=== PATIENT | female | born 1965 | race Caucasian/White ===

== ENCOUNTER 2016-07-06 02:06 | Inpatient (IN) | payer OTHER ==
[~2016-07-06] VITALS: Ht 165.1 cm; Wt 77.7 kg
[2016-07-06] VITALS (10 sets, daily range): BP systolic 143–178; BP diastolic 68–88
--- NOTE | ~2016-07-06 | ST ---
[place], [place] EXERCISE STRESS TEST REPORT [id number] UNIT #: [id number] ROOM: 411 DOCTOR: DALJIT WEN MD BIRTHDATE: [birth year] DOS: 07/07/2016 EXERCISE MYOCARDIAL PERFUSION STUDY INDICATIONS: Precordial chest pain. PROCEDURE: The patient walked on a full Maurizio protocol stress test for 6 minutes 45 seconds and achieved a maximum heart rate of 147, which represented 88% of her maximum predicted heart rate at a workload of 10 mets. Her resting blood pressure of 138/78 giulia to 174/80. She stopped for fatigue and did not have any chest pain. No diagnostic electrocardiographic changes were seen. The Torrez treadmill score was 6.8, which is a low-risk finding. One minute prior to completion of exercise protocol, the patient was given radionuclide intravenously. IMPRESSION: 1. Adequate exercise capacity without chest pain or diagnostic electrocardiographic changes. 2. Isotope injected. Please see the separate imaging report for details of the patient's stress test results. DALJIT WEN MD CM:STRESS:EXERCISE STRESS TEST REPORT [id number] 1943 DALJIT WEN MD
--- NOTE | ~2016-07-06 | PR ---
[place], [place] PROGRESS NOTE NAME: MADDIE VILLAR UNIT #: [id number] ROOM: 411 DOCTOR: DALJIT WEN MD BIRTHDATE: [birth year] DOS: 07/07/2016 CARDIOLOGY PROGRESS NOTE SUBJECTIVE: The patient was seen in the Cardiology Department today 07/07/2016 prior to her stress test. She is a 51-year-old woman, who presented to the hospital yesterday with atypical chest discomfort. Since yesterday, her pains have resolved. She has not shown any objective findings suggesting acute coronary ischemia or infarction. She is scheduled for stress test today to further evaluate her symptoms. PHYSICAL EXAMINATION: VITAL SIGNS: Her pulse is 67 and regular, blood pressure is 138/78. She weighs 77.7 kg and has a body mass index of 28.5. HEENT: Normocephalic, atraumatic. NECK: Supple. She has no jugular distention. Carotids are full without bruits. LUNGS: Respirations are unlabored. Her chest is clear to auscultation and percussion. HEART: Has a regular rhythm with an S4 gallop and no S3. ABDOMEN: Soft and normoactive. EXTREMITIES: Showed no edema. LABORATORY DATA: Her electrocardiogram today showed sinus rhythm and was a normal tracing. IMPRESSION: 1. Chest pain with radiation into her left arm, relieved by aspirin and possibly also by nitrates. Her symptoms seem fairly atypical, but given her risk factors, this could represent unstable angina. The patient did not show any evidence of an acute myocardial injury. 2. Long-term and ongoing cigarette abuse. 3. Elevated blood pressure this admission, not previously documented. 4. Hyperlipidemia. LDL today is 123, total cholesterol is 197, HDL is 38. PLAN: The patient will undergo an exercise myocardial perfusion study. Further recommendations will depend upon the results of the stress test. Once again, she was advised to quit smoking. I thank the hospitalist group for asking our advice regarding her care. [place], [place] PROGRESS NOTE NAME: MADDIE VILLAR UNIT #: [id number] ROOM: 411 DOCTOR: DALJIT WEN MD BIRTHDATE: [birth year] DALJIT WEN MD CM:PNTRANS [id number] 33 DALJIT WEN MD 07/07/161932 interface
--- NOTE | ~2016-07-06 | CON ---
[place], [place] REPORT OF CONSULTATION NAME: [id number] UNIT #: [id number] ROOM: 411 DOCTOR: DALJIT WEN MD BIRTHDATE: [birth year] DOS: 07/06/2016 CARDIOLOGY CONSULTATION REASON FOR CONSULTATION: Chest pain. HISTORY OF PRESENT ILLNESS: The patient is a 51-year-old woman who has no previous history of heart disease. She has not seen physicians in quite some time. She does have a history of tobacco abuse and obesity as well as probable hyperlipidemia. She states that for the last several days, she has had brief episodes of left anterior chest discomfort which come and go without provocation. Last evening, she had a much more prolonged episode of pain lasting at least 30-40 minutes. It was associated with dyspnea and was a burning sensation in her left anterior chest that radiated into her arm. There was no associated diaphoresis, palpitation, lightheadedness or syncope. She presented to the Emergency Room where her electrocardiogram was normal, but she did receive relief with sublingual nitroglycerin and aspirin. She was therefore admitted to the hospital for further assessment. Her risk factors include obesity and tobacco abuse. She is not known to have diabetes or hypertension. PAST MEDICAL HISTORY: Includes; 1. Nonalcoholic fatty liver disease. 2. Obesity. 3. Long-term and ongoing tobacco abuse of about 1.5 packs per day. 4. History of section, tubal ligation and tonsillectomy. FAMILY HISTORY: The patient's father had a bypass at age 88 and from a heart attack at age 89. Her mother in her 60s from lung cancer. There is no other family history of heart disease. REVIEW OF SYSTEMS: The patient denies diplopia, loss of vision, lightheadedness or syncope. She denies focal weakness. She denies nausea or vomiting. She denies fevers, chills or sweats. She denies any recent weight change. She denies orthopnea or PND. She denies any palpitations. She denies cough, fevers or chills. She denies any recent weight change. She denies any change in bowel or bladder habits and denies bleeding in her stools or urine. 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 She denies any hot or swollen joints. The remainder of the review of systems is negative except as noted above. SOCIAL HISTORY: The patient does smoke one and a half pack of cigarettes a day. She does not consume excessive amounts of alcohol or any illegal drugs. PHYSICAL EXAMINATION: GENERAL: The patient is an overweight white female who is awake, alert and oriented. VITAL SIGNS: Pulse is 70 and regular, blood pressure is 151/73. She is afebrile. She weighs 77.7 kg and has a body mass index of 28.5. [place], [place] REPORT OF CONSULTATION NAME: MADDIE VILLAR UNIT #: [id number] ROOM: 411 DOCTOR: DALJIT WEN MD BIRTHDATE: [birth year] HEENT: Normocephalic, atraumatic. Extraocular muscles are intact. Sclerae are clear. Pupils are equal, round and reactive to light. The oral mucosa is moist. Tongue is midline. NECK: Supple. She has no jugular distention. Carotids are full. I heard no bruits. She had no neck or supraclavicular masses and no thyromegaly. LUNGS: Respirations are unlabored. Her chest is clear to auscultation and percussion. She has no presacral edema or chest wall tenderness. HEART: Has a regular rhythm. She has a fourth heart sound, but no third heart sound or murmur. The PMI is not displaced. She has no precordial heave, lift or thrill. ABDOMEN: Soft and normally active without masses, organomegaly or bruits. EXTREMITIES: Showed no clubbing, cyanosis or edema. Peripheral pulses are easily palpated in the feet bilaterally. She does have ichthyosis of her arms, torso and legs. IMAGING: I reviewed her electrocardiogram, which showed sinus rhythm and was a normal tracing. IMPRESSION: 1. Chest pain with radiation into her left arm, relieved by aspirin and possibly nitrates. Given her risk factors, this certainly could represent unstable angina. Thus far, she does not show any signs of myocardial injury. 2. Long-term and ongoing cigarette abuse. 3. Possible hyperlipidemia. The patient does have prominent xanthelasma on her eyelids bilaterally. 4. Elevated blood pressure this admission. PLAN: The patient has already ruled out for myocardial infarction. A lipid panel is pending. Her thyroid profile is normal. If no problems develop overnight, I think that she should be further evaluated with an exercise myocardial perfusion study. I explained the study to the patient and she has agreed to proceed. I thank the hospitalist group for asking our advice regarding her care. DALJIT WEN MD CM:CONSTR:REPORT OF CONSULTATION 1742 07/07/16 0438 interface
[~2016-07-06 02:06] MED LIST: NO DAILY MEDS; ULTRAM50 MG PO; VICODIN ES 7501 TAB PO
[2016-07-06 02:45] LABS: BASO # 0.1 10*3/uL (0.0-0.1); BASO % 0.8 % (0.0-1.0); EOS # 0.2 10*3/uL (0.0-0.4); EOS % 2.7 % (1.0-4.0); HEMATOCRIT 43.6 % (37.0-47.0); HEMOGLOBIN 14.2 g/dl (12.0-16.0); LYMPH % 22.7 % (27.0-41.0); MEAN CELL VOLUME 92.2 fl (81.0-99.0); MEAN CORPUSCULAR HGB CONC 32.6 g/dl (33.0-37.0); MEAN PLATELET VOLUME 8.8 fl (9.6-12.3); MONO # 0.7 10*3/uL (0.1-1.0); MONO % 7.8 % (3.0-9.0); NEUT # 5.7 10*3/uL (2.3-7.9); NEUT % 65.9 % (47.0-73.0); PLATELET COUNT AUTOMATED 211 10*3/uL (130-400); RED BLOOD COUNT 4.73 10*6/uL (4.10-5.10); RED CELL DISTRI WIDTH 13.2 % (0-14.5); WHITE BLOOD COUNT 8.7 10*3/uL (4.8-10.8)
[2016-07-06] MEDS ORDERED: ALEVE220 M1 PO (02:49)
[2016-07-06 02:57] LABS: BUN 11 mg/dl (7-24); CARBON DIOXIDE 28 mmol/L (21-32); CHLORIDE 109 mmol/L (98-107); EST GLOM FILT AFRICAN AMERICAN > 60 ml/min; GLUCOSE 88 mg/dL (65-99); POTASSIUM 3.8 mmol/L (3.5-5.1); SODIUM 145 mmol/L (136-145)
[2016-07-06 06:38] LABS: CKMB 0.6 ng/ml (0.5-3.6)
[2016-07-06 06:44] LABS: HEMOGLOBIN A1c 5.4 % (4.8-5.6)
[2016-07-06 07:13] LABS: ALBUMIN 3.4 gm/dl (3.1-4.5); BILIRUBIN, TOTAL 0.4 mg/dl (0.2-1.0); BUN 10 mg/dl (7-24); CARBON DIOXIDE 29 mmol/L (21-32); CHLORIDE 107 mmol/L (98-107); EST GLOM FILT AFRICAN AMERICAN > 60 ml/min; GLUCOSE 107 mg/dL (65-99); POTASSIUM 4.3 mmol/L (3.5-5.1); SGOT/AST 12 IU/L (3-35); SGPT/ALT 16 U/L (12-78); SODIUM 143 mmol/L (136-145); TOTAL PROTEIN 6.9 gm/dL (6.4-8.2)
[2016-07-06 07:14] LABS: MAGNESIUM 2.4 mg/dL (1.5-2.1); THYROID STIM HORMONE (HS) 0.569 uIU/ml (0.358-4.75)
[2016-07-06 07:18] LABS: INTERNATIONAL NORM RATIO 0.9 (2.0-3.5); PROTHROMBIN TIME 9.3 SECONDS (9.0-12.4)
[2016-07-06 07:22] LABS: ALKALINE PHOSPHATASE 84 U/L (45-117); FREE T4 1.01 ng/dl (0.76-1.46)
[2016-07-06 12:24] LABS: CKMB 0.7 ng/ml (0.5-3.6)
[2016-07-06 13:12] LABS: FOLIC ACID 2.56 ng/mL (>5.38)
[2016-07-06 18:16] LABS: CKMB 0.7 ng/ml (0.5-3.6)
[2016-07-07] VITALS: BP 151/73
[2016-07-07 06:55] LABS: BASO # 0.1 10*3/uL (0.0-0.1); BASO % 0.8 % (0.0-1.0); EOS # 0.2 10*3/uL (0.0-0.4); EOS % 3.4 % (1.0-4.0); HEMATOCRIT 44.3 % (37.0-47.0); HEMOGLOBIN 14.4 g/dl (12.0-16.0); LYMPH # 1.9 10*3/uL (1.3-4.4); LYMPH % 30.5 % (27.0-41.0); MEAN CELL VOLUME 92.1 fl (81.0-99.0); MEAN CORPUSCULAR HGB 29.9 pg (27.0-31.0); MEAN CORPUSCULAR HGB CONC 32.5 g/dl (33.0-37.0); MEAN PLATELET VOLUME 9.3 fl (9.6-12.3); MONO # 0.5 10*3/uL (0.1-1.0); MONO % 7.9 % (3.0-9.0); NEUT # 3.5 10*3/uL (2.3-7.9); NEUT % 57.1 % (47.0-73.0); PLATELET COUNT AUTOMATED 239 10*3/uL (130-400); RED BLOOD COUNT 4.81 10*6/uL (4.10-5.10); RED CELL DISTRI WIDTH 13.2 % (0-14.5); WHITE BLOOD COUNT 6.1 10*3/uL (4.8-10.8)
[2016-07-07 07:28] LABS: BUN 12 mg/dl (7-24); CARBON DIOXIDE 27 mmol/L (21-32); CHLORIDE 106 mmol/L (98-107); EST GLOM FILT AFRICAN AMERICAN > 60 ml/min; GLUCOSE 91 mg/dL (65-99); SODIUM 142 mmol/L (136-145)
[2016-07-07 08:00] VITALS: BP 144/80
[2016-07-07 12:00] VITALS: BP 115/89
[2016-07-07] MEDS ORDERED: NATURE'S BLEND F1 MG PO (15:28)
[2016-07-07] MEDS ORDERED: B12,B-12,B 12500 MC1 PO (15:28)
[2016-07-07 16:00] VITALS: BP 161/92
== END 2016-07-07 16:35 | disposition home or self-care (01) | DRG 311 ==
LOC: ED 02:06 → 4E 04:07 → EDHOLD 04:07 → 4E 04:51
PROVIDERS: Emergency Medicine Emergency Medical Services; Hospitalist
DX: I20.0 Unstable angina (principal); K76.0 Fatty (change of) liver, not elsewhere classified; I10 Essential (primary) hypertension; E66.9 Obesity, unspecified; E53.8 Deficiency of other specified B group vitamins; F17.210 Nicotine dependence, cigarettes, uncomplicated; E78.5 Hyperlipidemia, unspecified; Z98.51 Tubal ligation status; Z80.1 Family history of malignant neoplasm of trachea, bronchus and lung; Z79.899 Other long term (current) drug therapy; Z82.49 Family history of ischemic heart disease and other diseases of the circulatory system; Z90.49 Acquired absence of other specified parts of digestive tract; Z68.29 Body mass index [BMI] 29.0-29.9, adult

== ENCOUNTER → 2016-07-12 | Outpatient (CLI) | payer OTHER ==
[~2016-07-12] MED LIST changes: +ALEVE220 M1 PO; +B12,B-12,B 12500 MC1 PO; +NATURE'S BLEND F1 MG PO
== END | disposition home or self-care (01) ==
LOC: RESCLI 01:38
DX: Z09 Encounter for follow-up examination after completed treatment for conditions other than malignant neoplasm (principal); E53.8 Deficiency of other specified B group vitamins; E66.01 Morbid (severe) obesity due to excess calories; Z71.6 Tobacco abuse counseling; Z72.0 Tobacco use; Z68.28 Body mass index [BMI] 28.0-28.9, adult

== ENCOUNTER → 2016-09-28 | Outpatient (CLI) | payer OTHER | END | disposition home or self-care (01) | LOC: NM 07:00 | DX: E04.1 Nontoxic single thyroid nodule (principal) ==

== ENCOUNTER → 2017-01-31 | Outpatient (CLI) | payer OTHER ==
[2017-01-31 11:22] LABS: THYROID STIM HORMONE (HS) 1.32 uIU/ml (0.358-4.75)
== END | disposition home or self-care (01) ==
LOC: LAB 10:00
PROVIDERS: Internal Medicine Endocrinology, Diabetes & Metabolism
DX: R94.6 Abnormal results of thyroid function studies (principal)

== ENCOUNTER → 2018-09-20 | Outpatient (CLI) | payer OTHER | END | disposition home or self-care (01) | LOC: MAMMO 10:17 | DX: Z12.31 Encounter for screening mammogram for malignant neoplasm of breast (principal) ==

== ENCOUNTER 2019-09-12 15:51 | Emergency (ER) | payer OTHER ==
[~2019-09-12] VITALS: Ht 165.1 cm; Wt 81.6 kg
[2019-09-12 16:29] LABS: BASO # 0.1 10*3/uL (0.0-0.1); BASO % 0.8 % (0.0-1.0); EOS # 0.2 10*3/uL (0.0-0.4); EOS % 1.9 % (1.0-4.0); HEMATOCRIT 45.2 % (37.0-47.0); HEMOGLOBIN 14.7 g/dl (12.0-16.0); LYMPH # 1.9 10*3/uL (1.3-4.4); LYMPH % 20.8 % (27.0-41.0); MEAN CELL VOLUME 92.6 fl (81.0-99.0); MEAN CORPUSCULAR HGB 30.1 pg (27.0-31.0); MEAN CORPUSCULAR HGB CONC 32.5 g/dl (33.0-37.0); MONO # 0.7 10*3/uL (0.1-1.0); MONO % 7.3 % (3.0-9.0); NEUT # 6.2 10*3/uL (2.3-7.9); NEUT % 68.9 % (47.0-73.0); PLATELET COUNT AUTOMATED 261 10*3/uL (130-400); RED BLOOD COUNT 4.88 10*6/uL (4.10-5.10); RED CELL DISTRI WIDTH 13.9 % (0-14.5)
[2019-09-12 16:39] LABS: ACT PARTIAL THROMBO TIME 25.9 SECONDS (20.0-32.1); INTERNATIONAL NORM RATIO 0.9 (2.0-3.5)
[2019-09-12 16:46] LABS: ALBUMIN 3.6 gm/dl (3.1-4.5); ALKALINE PHOSPHATASE 89 U/L (45-117); BUN 13 mg/dl (7-24); CHLORIDE 109 mmol/L (98-107); POTASSIUM 3.9 mmol/L (3.5-5.1); SGOT/AST 4 IU/L (3-35); SGPT/ALT 18 U/L (12-78); SODIUM 139 mmol/L (136-145); TOTAL PROTEIN 7.5 gm/dL (6.4-8.2)
[2019-09-12 16:48] LABS: TROPONIN I < 0.015 ng/ml (<0.045)
[2019-09-12] MEDS ORDERED: TYLENOL325 M1 PO (17:21)
[2019-09-12] MEDS ORDERED: PRILOSEC20 M1 PO (17:21)
== END 2019-09-12 17:33 | disposition home or self-care (01) ==
LOC: ED 15:51
PROVIDERS: Emergency Medicine
DX: R10.13 Epigastric pain (principal); R11.2 Nausea with vomiting, unspecified; I10 Essential (primary) hypertension; E66.9 Obesity, unspecified; G43.909 Migraine, unspecified, not intractable, without status migrainosus; M19.90 Unspecified osteoarthritis, unspecified site; F17.200 Nicotine dependence, unspecified, uncomplicated; Z68.30 Body mass index [BMI] 30.0-30.9, adult; Z88.8 Allergy status to other drugs, medicaments and biological substances; Z79.899 Other long term (current) drug therapy; Z98.890 Other specified postprocedural states

== ENCOUNTER 2019-10-11 19:20 | Emergency (ER) | payer OTHER ==
[~2019-10-11] VITALS: Ht 165.1 cm; Wt 82.6 kg
[~2019-10-11 19:20] MED LIST changes: +PRILOSEC20 M1 PO; +TYLENOL325 M1 PO
[2019-10-11 19:59] LABS: BASO # 0.1 10*3/uL (0.0-0.1); BASO % 0.5 % (0.0-1.0); EOS # 0.1 10*3/uL (0.0-0.4); EOS % 0.7 % (1.0-4.0); HEMATOCRIT 45.7 % (37.0-47.0); HEMOGLOBIN 14.7 g/dl (12.0-16.0); LYMPH # 1.2 10*3/uL (1.3-4.4); LYMPH % 12.5 % (27.0-41.0); MEAN CELL VOLUME 93.3 fl (81.0-99.0); MEAN CORPUSCULAR HGB CONC 32.2 g/dl (33.0-37.0); MEAN PLATELET VOLUME 8.8 fl (9.6-12.3); MONO # 0.9 10*3/uL (0.1-1.0); MONO % 9.2 % (3.0-9.0); NEUT # 7.2 10*3/uL (2.3-7.9); NEUT % 76.7 % (47.0-73.0); PLATELET COUNT AUTOMATED 239 10*3/uL (130-400); RED CELL DISTRI WIDTH 13.9 % (0-14.5); WHITE BLOOD COUNT 9.4 10*3/uL (4.8-10.8)
[2019-10-11 20:10] LABS: ACT PARTIAL THROMBO TIME 26.1 SECONDS (20.0-32.1); INTERNATIONAL NORM RATIO 0.9 (2.0-3.5)
[2019-10-11 20:16] LABS: ALBUMIN 3.6 gm/dl (3.1-4.5); ALKALINE PHOSPHATASE 103 U/L (45-117); BUN 10 mg/dl (7-24); CHLORIDE 108 mmol/L (98-107); CREATININE 0.83 mg/dL (0.55-1.02); POTASSIUM 3.9 mmol/L (3.5-5.1); SGOT/AST 258 IU/L (3-35); SGPT/ALT 174 U/L (12-78); SODIUM 141 mmol/L (136-145); TOTAL PROTEIN 7.1 gm/dL (6.4-8.2)
[2019-10-11 20:17] LABS: TROPONIN I < 0.015 ng/ml (<0.045)
[2019-10-11] MEDS ORDERED: DICYCLOMINE HYD10 MG PO (21:12)
[2019-10-11] MEDS ORDERED: PROTONIX40 MG PO (21:12)
== END 2019-10-11 21:15 | disposition home or self-care (01) ==
LOC: ED 19:20
PROVIDERS: Emergency Medicine Emergency Medical Services
DX: K80.50 Calculus of bile duct without cholangitis or cholecystitis without obstruction (principal); R94.5 Abnormal results of liver function studies; K21.9 Gastro-esophageal reflux disease without esophagitis; G43.909 Migraine, unspecified, not intractable, without status migrainosus; F17.200 Nicotine dependence, unspecified, uncomplicated; Z88.8 Allergy status to other drugs, medicaments and biological substances; Z79.899 Other long term (current) drug therapy

== ENCOUNTER 2020-01-09 13:20 | Inpatient (IN) | payer OTHER ==
[~2020-01-09] VITALS: Ht 165.1 cm; Wt 78.5 kg
[~2020-01-09 13:20] MED LIST changes: +DICYCLOMINE HYD10 MG PO; +PROTONIX40 MG PO
[2020-01-09 13:33] VITALS: BP 154/86
--- NOTE | 2020-01-09 14:04 | NUR ---
YONAS GIVEN BY BRENNAN DIAZ
[2020-01-09 14:12] LABS: BASO # 0.1 10*3/uL (0.0-0.1); BASO % 0.6 % (0.0-1.0); EOS # 0.1 10*3/uL (0.0-0.4); EOS % 1.4 % (1.0-4.0); HEMATOCRIT 46.3 % (37.0-47.0); LYMPH # 1.5 10*3/uL (1.3-4.4); LYMPH % 16.2 % (27.0-41.0); MEAN CELL VOLUME 92.2 fl (81.0-99.0); MEAN CORPUSCULAR HGB 29.9 pg (27.0-31.0); MEAN CORPUSCULAR HGB CONC 32.4 g/dl (33.0-37.0); MEAN PLATELET VOLUME 8.7 fl (9.6-12.3); MONO # 0.8 10*3/uL (0.1-1.0); MONO % 8.3 % (3.0-9.0); NEUT # 6.9 10*3/uL (2.3-7.9); NEUT % 73.1 % (47.0-73.0); PLATELET COUNT AUTOMATED 278 10*3/uL (130-400); RED BLOOD COUNT 5.02 10*6/uL (4.10-5.10); RED CELL DISTRI WIDTH 13.4 % (0-14.5); WHITE BLOOD COUNT 9.4 10*3/uL (4.8-10.8)
[2020-01-09 14:27] LABS: ACT PARTIAL THROMBO TIME 27.5 SECONDS (20.0-32.1); INTERNATIONAL NORM RATIO 0.9 (2.0-3.5)
[2020-01-09 14:29] LABS: ALBUMIN 3.5 gm/dl (3.1-4.5); ALKALINE PHOSPHATASE 94 U/L (45-117); BUN 12 mg/dl (7-24); CHLORIDE 108 mmol/L (98-107); CREATININE 0.78 mg/dL (0.55-1.02); LIPASE 114 U/L (73-393); SGOT/AST 9 IU/L (3-35); SGPT/ALT 17 U/L (12-78); SODIUM 141 mmol/L (136-145); TOTAL PROTEIN 7.6 gm/dL (6.4-8.2)
[2020-01-09 14:31] LABS: TROPONIN I < 0.015 ng/ml (<0.045)
--- NOTE | 2020-01-09 15:30 | NUR ---
PATIENT STILL COMPLAINS OF PAIN IN HER CHEST INTO HER BACK. DR. NUNES NOTIFIED.
[2020-01-09 16:25] LABS: BILIRUBIN NEGATIVE (NEGATIVE); BLOOD NEGATIVE (NEGATIVE); CLARITY CLEAR (CLEAR); COLOR YELLOW (YELLOW); GLUCOSE NEGATIVE (NEGATIVE); KETONE TRACE (NEGATIVE); LEUKO ESTERASE NEGATIVE (NEGATIVE); NITRITE NEGATIVE (NEGATIVE); SPECIFIC GRAVITY 1.015 (1.005-1.030); UROBILINOGEN 0.2 E.U./dl (0.2-1.0)
[2020-01-09 16:30] VITALS: BP 143/75
[2020-01-09 16:34] LABS: BACTERIA TRACE; MUCOUS 1+
--- NOTE | 2020-01-09 17:38 | NUR ---
Time: 1737 A 54 year old FEMALE admitted to 5E under services of DR. SHILOH RAE,PETEY. Pt. arrived via bed from ER. Chief complaint: EPIGASTRIC ABD PAIN. BAO CHRISTIANSON
[2020-01-09] MEDS ORDERED: AMLODIPINE BESYL5 MG PO (17:43)
--- NOTE | 2020-01-09 18:25 | NUR ---
NOTIFIED OF CONSULT, EGD FOR TOMORROW
[2020-01-09 20:00] VITALS: BP 140/61
[2020-01-10] VITALS (9 sets, daily range): BP systolic 111–161; BP diastolic 51–93
--- NOTE | 2020-01-10 08:35 | NUR ---
DR HILLS ROUNDED TO SEEN PT BUT SHE WAS OFF FLOOR FOR HIDA SCAN.
--- NOTE | 2020-01-10 09:00 | NUR ---
Platform Engineer in to see patient. She is currently not in her room. Will follow up at a later time.
--- NOTE | 2020-01-10 12:23 | NUR ---
SPOKE WITH DR MATAMOROS REGARDING EGD RESULTS AND ORDERS RECIEVED TO CONTINUE HOME MEDS.
--- NOTE | 2020-01-10 13:00 | NUR ---
Barrel Tester And Drainer in to talk to patient. Patient states lives at home with her and [id number]. There are 0 steps in the home. Physician: Dr. Shanta Charles Pharmacy: [facility] Home health services: none Patient's level of ADLs: INDEPENDENT Patient has working utilities: yes DME: none Follow-up physician's appointment after d/c: she prefers to make her own follow up appt after discharge Does patient want to access PORTAL?: no Discharge plan discussed with patient. She lives at home with her and [id number]. She is independent in her ADLs and ambulation. Discussed home health care services and she denies any home needs. When medically stable she will be discharged to home. She is anxious to be discharged. She states her will provide transportation on discharge. BJ BALDERAS
--- NOTE | 2020-01-10 13:08 | NUR ---
PT RESTING IN BED HAVING JUST FINISHED FIRST MEAL POST EGD. PT VOICES NO NEEDS AT THIS TIME.DENIES N/V/D/PAIN.STABLE. RES[PS EASY ON RA. NS INFUSING @70 ML/HR.WILL CONTINUE TO MONITOR. CALL LIGHT IN REACH.
--- NOTE | 2020-01-10 15:19 | NUR ---
NORMAL SALININE AT 70CC/HR D/C PER DR MATAMOROS'S ORDER.
[2020-01-11] VITALS: BP 146/66
--- NOTE | 2020-01-11 08:42 | NUR ---
PMH:1 1/2 pack a day smoker Tests:CT-Abd/pel with contrast IV: No signs of infiltration noted Site: Left AC Central: None IVF: None IV Rate: Fluid was disconnected 01/10/2020 Drips:None Neuro: pt was A&O x4 Pain: 0/10 stated by pt Activity: Up and active no assistance needed Respiratory: Room Air Breath Sounds: Clear Treatments: None Vitals HR:127bpm BP:138/79 Temp:98.0 F O2:96% RR:18 Cardiovascular: Slight murmur, barely audible Edema: none noted Pulses: bilateral +2 pulses on radial and bracial. VTE Prophylaxis: None needed Gastrointestinal: Diet: [place] diet Last Bm: 01/10/2020 Genitourinary: voiding regularly, clear/ light yellow Musculoskeletal: no weakness noted. Skin: clear warm, no wounds noted. Manuel Delgadillo Student Nurse /Sherri DIAZ
[2020-01-11] MEDS ORDERED: CIPRO500 MG PO (08:56)
[2020-01-11] MEDS ORDERED: FLAGYL500 MG PO (08:56)
--- NOTE | 2020-01-11 09:49 | NUR ---
Discharge instructions reviewed with patient/family. Patient receptive and verbalizes understanding. Follow-up care arranged. Written instructions given to patient/family. YIN BUNN
[2020-01-12] MEDS ORDERED: DICYCLOMINE HCL10 MG PO (02:27)
== END 2020-01-11 10:47 | disposition home or self-care (01) | DRG 446 ==
LOC: ED 13:20 → EDHOLD 16:17 → 5E 16:17 → 4E 16:58 → 5E 17:10
PROVIDERS: Emergency Medicine; ADMIT Internal Medicine
PROC: 0DB68ZX Excision of Stomach, Via Natural or Artificial Opening Endoscopic, Diagnostic (ICD-10-PCS; principal; 2020-01-10)
DX: K80.10 Calculus of gallbladder with chronic cholecystitis without obstruction (principal); K29.00 Acute gastritis without bleeding; K21.9 Gastro-esophageal reflux disease without esophagitis; I10 Essential (primary) hypertension; E66.9 Obesity, unspecified; F17.210 Nicotine dependence, cigarettes, uncomplicated; Z98.891 History of uterine scar from previous surgery; Z98.51 Tubal ligation status; Z88.6 Allergy status to analgesic agent; Z82.49 Family history of ischemic heart disease and other diseases of the circulatory system; Z80.1 Family history of malignant neoplasm of trachea, bronchus and lung; Z68.29 Body mass index [BMI] 29.0-29.9, adult

== ENCOUNTER 2020-01-11 21:34 | Inpatient (IN) | payer OTHER ==
[~2020-01-11] VITALS: Ht 165 cm; Wt 78.9 kg
[~2020-01-11 21:34] MED LIST changes: +AMLODIPINE BESYL5 MG PO; +CIPRO500 MG PO; +FLAGYL500 MG PO
[2020-01-11 21:41] VITALS: BP 143/71
[2020-01-11 22:13] LABS: BASO % 0.4 % (0.0-1.0); EOS % 0.4 % (1.0-4.0); HEMATOCRIT 44.7 % (37.0-47.0); LYMPH # 0.7 10*3/uL (1.3-4.4); LYMPH % 7.2 % (27.0-41.0); MEAN CELL VOLUME 90.9 fl (81.0-99.0); MEAN CORPUSCULAR HGB 29.9 pg (27.0-31.0); MEAN CORPUSCULAR HGB CONC 32.9 g/dl (33.0-37.0); MEAN PLATELET VOLUME 8.9 fl (9.6-12.3); MONO # 0.8 10*3/uL (0.1-1.0); MONO % 8.1 % (3.0-9.0); NEUT # 8.3 10*3/uL (2.3-7.9); NEUT % 83.5 % (47.0-73.0); PLATELET COUNT AUTOMATED 262 10*3/uL (130-400); RED BLOOD COUNT 4.92 10*6/uL (4.10-5.10); RED CELL DISTRI WIDTH 13.2 % (0-14.5)
--- NOTE | 2020-01-11 22:15 | NUR ---
PT MEDICATED PER EMAR.RADIOLOGY AT BEDSIDE.PT PROVIDED EMESIS BAG AND WARM BLANKET.
[2020-01-11 22:29] LABS: ALBUMIN 3.4 gm/dl (3.1-4.5); ALKALINE PHOSPHATASE 240 U/L (45-117); BUN 9 mg/dl (7-24); CHLORIDE 108 mmol/L (98-107); CREATININE 0.71 mg/dL (0.55-1.02); LIPASE 85 U/L (73-393); POTASSIUM 3.2 mmol/L (3.5-5.1); SGOT/AST 299 IU/L (3-35); SGPT/ALT 174 U/L (12-78); SODIUM 140 mmol/L (136-145); TOTAL PROTEIN 7.4 gm/dL (6.4-8.2)
[2020-01-11 22:52] LABS: COLOR YELLOW (YELLOW)
[2020-01-11 22:53] LABS: BILIRUBIN 1+ (NEGATIVE); BLOOD TRACE-INTACT (NEGATIVE); CLARITY CLEAR (CLEAR); GLUCOSE NEGATIVE (NEGATIVE); KETONE NEGATIVE (NEGATIVE); LEUKO ESTERASE 2+ (NEGATIVE); NITRITE NEGATIVE (NEGATIVE); PH 7.5 (5.0-9.0)
[2020-01-11 22:59] LABS: BACTERIA 1+; MUCOUS 2+
[2020-01-12 01:06] VITALS: BP 129/68
--- NOTE | 2020-01-12 01:11 | NUR ---
MD MACIAS AT BEDSIDE TO UPDATE PT ON PLAN OF ADMISSION.
[2020-01-12 01:55] VITALS: BP 126/60
--- NOTE | 2020-01-12 01:55 | NUR ---
Time: 154 A 54 year old F admitted to under services of DR. ANDREA RAE,DINA Duong Pt. arrived via wheel chair from ER. Chief complaint: ABDOMIAL PAIN. SIMON MAGANA
[2020-01-12] MEDS ORDERED: DICYCLOMINE HCL10 MG PO (02:27)
--- NOTE | 2020-01-12 02:28 | NUR ---
CALLED AND SPOKE WITH ER NURSE REGARDING DR. HILLS CONSULT. INFORMED THAT DR. MACIAS SPOKE WITH DR. HLILS.
[2020-01-12 05:35] LABS: ALKALINE PHOSPHATASE 218 U/L (45-117); BUN 11 mg/dl (7-24); CHLORIDE 109 mmol/L (98-107); CREATININE 0.66 mg/dL (0.55-1.02); POTASSIUM 3.8 mmol/L (3.5-5.1); SGOT/AST 305 IU/L (3-35); SGPT/ALT 230 U/L (12-78); SODIUM 142 mmol/L (136-145); TOTAL PROTEIN 6.7 gm/dL (6.4-8.2)
--- NOTE | 2020-01-12 06:53 | NUR ---
CHART CHECK COMPLETE.
[2020-01-12 08:00] VITALS: BP 120/70
--- NOTE | 2020-01-12 08:17 | NUR ---
PT C/O OF NAUSEA AND ABD PAIN RATING 6/10 PRN ZPFRAN AND PAIN MEDICATION GIVEN PER ORDER
--- NOTE | 2020-01-12 09:00 | NUR ---
PT RESTING IN BED WITH EYES CLOSED NO COMPLAINST AT THIS TIME
[2020-01-12 12:00] VITALS: BP 115/56
[2020-01-12 16:00] VITALS: BP 125/55
[2020-01-13] VITALS (11 sets, daily range): BP systolic 118–157; BP diastolic 66–76
[2020-01-13 07:33] LABS: ALKALINE PHOSPHATASE 178 U/L (45-117); BASO # 0.1 10*3/uL (0.0-0.1); BASO % 0.8 % (0.0-1.0); BUN 12 mg/dl (7-24); CHLORIDE 106 mmol/L (98-107); CREATININE 0.72 mg/dL (0.55-1.02); EOS # 0.2 10*3/uL (0.0-0.4); EOS % 2.5 % (1.0-4.0); HEMATOCRIT 41.5 % (37.0-47.0); LYMPH # 1.3 10*3/uL (1.3-4.4); LYMPH % 17.9 % (27.0-41.0); MEAN CELL VOLUME 92.4 fl (81.0-99.0); MEAN CORPUSCULAR HGB 29.8 pg (27.0-31.0); MEAN CORPUSCULAR HGB CONC 32.3 g/dl (33.0-37.0); MEAN PLATELET VOLUME 8.9 fl (9.6-12.3); MONO # 0.6 10*3/uL (0.1-1.0); MONO % 8.2 % (3.0-9.0); PLATELET COUNT AUTOMATED 271 10*3/uL (130-400); RED BLOOD COUNT 4.49 10*6/uL (4.10-5.10); RED CELL DISTRI WIDTH 13.3 % (0-14.5); SGOT/AST 110 IU/L (3-35); SGPT/ALT 184 U/L (12-78); SODIUM 141 mmol/L (136-145); TOTAL PROTEIN 6.4 gm/dL (6.4-8.2); WHITE BLOOD COUNT 7.1 10*3/uL (4.8-10.8)
--- NOTE | 2020-01-13 08:22 | NUR ---
OFF FLOOR FOR SURGERY.
--- NOTE | 2020-01-13 12:43 | NUR ---
BACK TO ROOM FOLLOWING SURGERY.
--- NOTE | 2020-01-13 12:53 | NUR ---
IN TO SEE PT.
--- NOTE | 2020-01-13 12:54 | NUR ---
PER , OK TO GIVE ZOFRAN NOW DESPITE 1130 DOSE. SEE MAR.
--- NOTE | 2020-01-13 12:58 | NUR ---
DILAUDID GIVEN FOR C/O PAIN TO ENTIRE ABD FOLLOWING SURGERY. CALL LIGHT IN REACH.
--- NOTE | 2020-01-13 13:36 | NUR ---
PER PT, PAIN IS BETTER, RATED 4/10. CALL LIGHT IN REACH.
--- NOTE | 2020-01-13 14:56 | NUR ---
NURSE TO NURSE REPORT GIVEN TO JOE RAZO AT [facility].
--- NOTE | 2020-01-13 16:09 | NUR ---
DILAUDID GIVEN FOR COMPLAINTS OF PAIN TO ABDOMEN FOLLOWING LAP CHOLEY TODAY. CALL LIGHT IN REACH. WILL MONITOR.
--- NOTE | 2020-01-13 16:16 | NUR ---
Discharge instructions reviewed with patient/family. Patient receptive and verbalizes understanding. Follow-up care arranged. Written instructions given to patient/family. TONEY FLOOD
--- NOTE | 2020-01-13 16:23 | NUR ---
Discharge instructions reviewed with patient/family. Patient receptive and verbalizes understanding. Follow-up care arranged. Written instructions given to patient/family. TONEY FLOOD
== END 2020-01-13 16:24 | disposition short-term general hospital (02) | DRG 418 ==
LOC: ED 21:34 → EDHOLD 01-12 01:19 → 4E 01-12 01:19
PROVIDERS: Emergency Medicine Emergency Medical Services; ADMIT Internal Medicine
PROC: BF131ZZ Fluoroscopy of Gallbladder and Bile Ducts using Low Osmolar Contrast (ICD-10-PCS; principal; 2020-01-13)
PROC: 0FT44ZZ Resection of Gallbladder, Percutaneous Endoscopic Approach (ICD-10-PCS; principal; 2020-01-13)
DX: K80.63 Calculus of gallbladder and bile duct with acute cholecystitis with obstruction (principal); E44.1 Mild protein-calorie malnutrition; G43.909 Migraine, unspecified, not intractable, without status migrainosus; I10 Essential (primary) hypertension; K21.0 Gastro-esophageal reflux disease with esophagitis; R74.0 Nonspecific elevation of levels of transaminase and lactic acid dehydrogenase [LDH]; E86.0 Dehydration; F17.200 Nicotine dependence, unspecified, uncomplicated; Z98.51 Tubal ligation status; Z82.49 Family history of ischemic heart disease and other diseases of the circulatory system; Z80.1 Family history of malignant neoplasm of trachea, bronchus and lung; Z68.29 Body mass index [BMI] 29.0-29.9, adult

== ENCOUNTER 2022-12-16 22:15 | Emergency (ER) | payer SELFPAY ==
[~2022-12-16] VITALS: Ht 160 cm; Wt 80.3 kg
[~2022-12-16 22:15] MED LIST changes: +DICYCLOMINE HCL10 MG PO
[2022-12-16 22:39] LABS: BASO # 0.1 10*3/uL (0.0-0.1); BASO % 0.9 % (0.0-1.0); EOS # 0.3 10*3/uL (0.0-0.4); EOS % 2.9 % (1.0-4.0); HEMATOCRIT 46.8 % (37.0-47.0); LYMPH # 1.9 10*3/uL (1.3-4.4); LYMPH % 21.6 % (27.0-41.0); MEAN CELL VOLUME 91.1 fl (81.0-99.0); MEAN CORPUSCULAR HGB 29.8 pg (27.0-31.0); MEAN CORPUSCULAR HGB CONC 32.7 g/dl (33.0-37.0); MEAN PLATELET VOLUME 8.8 fl (9.6-12.3); MONO # 0.7 10*3/uL (0.1-1.0); MONO % 8.1 % (3.0-9.0); NEUT # 5.9 10*3/uL (2.3-7.9); NEUT % 66.1 % (47.0-73.0); PLATELET COUNT AUTOMATED 249 10*3/uL (130-400); RED BLOOD COUNT 5.14 10*6/uL (4.10-5.10); RED CELL DISTRI WIDTH 13.3 % (0-14.5); WHITE BLOOD COUNT 8.9 10*3/uL (4.8-10.8)
[2022-12-16] MEDS ORDERED: AMLODIPINE BESYL5 MG PO (22:48)
[2022-12-16 23:01] LABS: ALKALINE PHOSPHATASE 88 U/L (46-116); BUN 10 mg/dl (9-23); CHLORIDE 107 mmol/L (98-107); POTASSIUM 3.2 mmol/L (3.4-5.1); SGPT/ALT 10 U/L (10-49); TOTAL PROTEIN 7.1 gm/dL (6.0-8.0)
== END 2022-12-17 00:23 | disposition short-term general hospital (02) ==
LOC: ED 22:15
PROVIDERS: Internal Medicine
DX: I21.4 Non-ST elevation (NSTEMI) myocardial infarction (principal); E87.6 Hypokalemia; F17.200 Nicotine dependence, unspecified, uncomplicated; Z88.8 Allergy status to other drugs, medicaments and biological substances; Z79.899 Other long term (current) drug therapy; Z98.890 Other specified postprocedural states; Z98.51 Tubal ligation status

== ENCOUNTER → 2023-07-25 | Outpatient (CLI) | payer OTHER | END | disposition home or self-care (01) | LOC: MAMMO 15:06 | PROVIDERS: ATTEND Internal Medicine | DX: Z12.31 Encounter for screening mammogram for malignant neoplasm of breast (principal) ==

== ENCOUNTER → 2023-08-04 | Outpatient (CLI) | payer OTHER | END | disposition home or self-care (01) | LOC: US 00:52 | PROVIDERS: ATTEND Internal Medicine | DX: I65.23 Occlusion and stenosis of bilateral carotid arteries (principal); E07.9 Disorder of thyroid, unspecified; R42 Dizziness and giddiness; E05.00 Thyrotoxicosis with diffuse goiter without thyrotoxic crisis or storm; E04.1 Nontoxic single thyroid nodule ==

== ENCOUNTER 2023-08-25 06:23 | Inpatient (IN) | payer OTHER ==
[~2023-08-25] VITALS: Ht 160 cm; Wt 81.2 kg
[2023-08-25] MEDS ORDERED: methylPREDNISolone sod succ 125 MG VIAL IV ONE (06:25)
[2023-08-25] MEDS ORDERED: Albuterol Sulf/Ipratropium 3 ML VIAL NEB ONE (06:25)
[2023-08-25 06:41] VITALS: BP 134/64
[2023-08-25] MEDS ORDERED: PLAVIX75 M1 PO (06:48)
[2023-08-25 06:50] LABS: BASO % 0.3 % (0.0-1.0); EOS # 0.1 10*3/uL (0.0-0.4); EOS % 1.5 % (1.0-4.0); HEMATOCRIT 45.9 % (37.0-47.0); LYMPH # 0.4 10*3/uL (1.3-4.4); LYMPH % 6.1 % (27.0-41.0); MEAN CELL VOLUME 93.1 fl (81.0-99.0); MEAN CORPUSCULAR HGB 29.6 pg (27.0-31.0); MEAN CORPUSCULAR HGB CONC 31.8 g/dl (33.0-37.0); MONO # 0.7 10*3/uL (0.1-1.0); MONO % 10.8 % (3.0-9.0); NEUT # 5.3 10*3/uL (2.3-7.9); NEUT % 80.8 % (47.0-73.0); PLATELET COUNT AUTOMATED 198 10*3/uL (130-400); RED BLOOD COUNT 4.93 10*6/uL (4.10-5.10); RED CELL DISTRI WIDTH 13.2 % (0-14.5); WHITE BLOOD COUNT 6.5 10*3/uL (4.8-10.8)
[2023-08-25 07:14] LABS: BUN 17 mg/dl (9-23); CHLORIDE 105 mmol/L (98-107); POTASSIUM 3.4 mmol/L (3.4-5.1)
[2023-08-25 07:25] VITALS: BP 110/55
[2023-08-25] MEDS ORDERED: METOPROLOL SUCC25 M2 PO (08:45)
[2023-08-25] MEDS ORDERED: ASPIRIN81 M1 PO (08:45)
[2023-08-25] MEDS ORDERED: LIPITOR80 MG PO (08:45)
[2023-08-25] MEDS ORDERED: NORVASC2.5 MG PO (08:46)
[2023-08-25] MEDS ORDERED: Ceftriaxone Sodium 1 GM/10 ML SYR IV ONE (09:35)
[2023-08-25] MEDS ORDERED: AZITHROMYCIN 250 ML IV ONE (09:35)
[2023-08-25] MEDS ORDERED: ASPIRIN 325 MG ENTERIC COATED PO SCH (10:00)
[2023-08-25 11:39] LABS: ABG BASE EXCESS -1.1 mmol/L (-2.0-2.0); ARTERIAL BLOOD GAS PH 7.372 (7.35-7.45)
[2023-08-25 12:10] VITALS: BP 122/67
[2023-08-25 16:28] VITALS: BP 129/51
[2023-08-25] MEDS ORDERED: Albuterol Sulfate 2.5 MG/3 ML VIAL NEB SCH (19:25)
[2023-08-25] MEDS ORDERED: methylPREDNISolone sod succ 40 MG VIAL IV SCH (19:25)
[2023-08-25] MEDS ORDERED: Nicotine 21 MG PATCH T SCH (19:30)
[2023-08-25 19:40] VITALS: BP 151/75
[2023-08-25] MEDS ORDERED: Nicotine 21 MG PATCH T ONE (19:45)
[2023-08-25 21:00] VITALS: BP 149/66
[2023-08-25] MEDS ORDERED: ACETAMINOPHEN 500 MG TAB PO PRN (23:20)
[2023-08-26] VITALS: BP 154/51
[2023-08-26 06:11] LABS: BASO % 0.1 % (0.0-1.0); HEMATOCRIT 44.5 % (37.0-47.0); LYMPH # 0.7 10*3/uL (1.3-4.4); LYMPH % 6.3 % (27.0-41.0); MEAN CELL VOLUME 94.9 fl (81.0-99.0); MEAN CORPUSCULAR HGB 30.1 pg (27.0-31.0); MEAN CORPUSCULAR HGB CONC 31.7 g/dl (33.0-37.0); MEAN PLATELET VOLUME 9.5 fl (9.6-12.3); MONO # 1.1 10*3/uL (0.1-1.0); MONO % 10.1 % (3.0-9.0); NEUT % 82.9 % (47.0-73.0); PLATELET COUNT AUTOMATED 226 10*3/uL (130-400); RED BLOOD COUNT 4.69 10*6/uL (4.10-5.10); RED CELL DISTRI WIDTH 13.4 % (0-14.5); WHITE BLOOD COUNT 10.9 10*3/uL (4.8-10.8)
[2023-08-26 06:46] LABS: BUN 23 mg/dl (9-23); CHLORIDE 108 mmol/L (98-107); POTASSIUM 4.3 mmol/L (3.4-5.1)
[2023-08-26 08:00] VITALS: BP 133/60
[2023-08-26] MEDS ORDERED: Ceftriaxone Sodium 1 GM in SYRINGE INFUSION 10 ML IV SCH ×2 (09:00→10:00)
[2023-08-26] MEDS ORDERED: Nicotine 21 MG PATCH T SCH (10:00)
[2023-08-26] MEDS ORDERED: amLODIPine besylate 2.5 MG TAB PO SCH (10:00)
[2023-08-26] MEDS ORDERED: AZITHROMYCIN 250 ML IV SCH ×2 (10:00)
[2023-08-26] MEDS ORDERED: ATORVASTATIN CALCIUM 80 MG TAB PO SCH (10:00)
[2023-08-26] MEDS ORDERED: METOPROLOL SUCCINATE XR 25 MG TAB PO SCH (10:00)
[2023-08-26] MEDS ORDERED: amLODIPine besylate 5 MG TAB PO SCH (10:00)
[2023-08-26] MEDS ORDERED: ASPIRIN 325 MG ENTERIC COATED PO SCH (10:00)
[2023-08-26] MEDS ORDERED: Clopidogrel Hydrogen Sulfate 75 MG TAB PO SCH (10:00)
[2023-08-26 12:00] VITALS: BP 117/48
[2023-08-26 16:00] VITALS: BP 131/64
[2023-08-26 20:00] VITALS: BP 131/47
[2023-08-27] VITALS: BP 130/68
[2023-08-27 08:00] VITALS: BP 130/55
[2023-08-27 12:00] VITALS: BP 119/76
[2023-08-27 16:00] VITALS: BP 132/55
[2023-08-27 20:00] VITALS: BP 139/60
[2023-08-28] VITALS: BP 146/60
[2023-08-28 08:00] VITALS: BP 144/64
[2023-08-28 12:00] VITALS: BP 129/50
[2023-08-28 16:00] VITALS: BP 135/53
[2023-08-28 20:00] VITALS: BP 155/66
[2023-08-29] VITALS: BP 150/46
[2023-08-29] MEDS ORDERED: Ketorolac Tromethamine 30 MG/ML VIAL IV ONE (00:10)
[2023-08-29 08:00] VITALS: BP 159/66
== END 2023-08-29 14:10 | disposition home or self-care (01) | DRG 140 ==
LOC: ED 06:23 → 4E 09:44 → EDHOLD 09:44 → 4E 20:06
PROVIDERS: Internal Medicine; Internal Medicine Critical Care Medicine; ADMIT Internal Medicine; ATTEND Internal Medicine
PROC: 5A09357 Assistance with Respiratory Ventilation, Less than 24 Consecutive Hours, Continuous Positive Airway Pressure (ICD-10-PCS; principal; 2023-08-25)
PROC: 5A09357 Assistance with Respiratory Ventilation, Less than 24 Consecutive Hours, Continuous Positive Airway Pressure (ICD-10-PCS; 2023-08-26)
DX: J43.2 Centrilobular emphysema (principal); J96.21 Acute and chronic respiratory failure with hypoxia; I24.89 Other forms of acute ischemic heart disease; F17.210 Nicotine dependence, cigarettes, uncomplicated; E78.2 Mixed hyperlipidemia; G43.909 Migraine, unspecified, not intractable, without status migrainosus; I25.10 Atherosclerotic heart disease of native coronary artery without angina pectoris; I10 Essential (primary) hypertension; E66.09 Other obesity due to excess calories; J20.9 Acute bronchitis, unspecified; K75.81 Nonalcoholic steatohepatitis (NASH); K80.20 Calculus of gallbladder without cholecystitis without obstruction; Z68.31 Body mass index [BMI] 31.0-31.9, adult; Z71.6 Tobacco abuse counseling; Z95.5 Presence of coronary angioplasty implant and graft; I25.2 Old myocardial infarction; Z98.51 Tubal ligation status; Z82.49 Family history of ischemic heart disease and other diseases of the circulatory system; Z80.1 Family history of malignant neoplasm of trachea, bronchus and lung; Z88.6 Allergy status to analgesic agent; Z88.8 Allergy status to other drugs, medicaments and biological substances; Z79.82 Long term (current) use of aspirin; Z79.899 Other long term (current) drug therapy

== ENCOUNTER 2023-10-15 15:03 | Emergency (ER) | payer OTHER ==
[~2023-10-15] VITALS: Ht 160 cm; Wt 72.6 kg
[~2023-10-15 15:03] MED LIST changes: +ASPIRIN81 M1 PO; +LIPITOR80 MG PO; +METOPROLOL SUCC25 M2 PO; +NORVASC2.5 MG PO; +PLAVIX75 M1 PO
[2023-10-15 15:30] LABS: BASO # 0.1 10*3/uL (0.0-0.1); BASO % 0.6 % (0.0-1.0); EOS # 0.2 10*3/uL (0.0-0.4); EOS % 1.4 % (1.0-4.0); HEMATOCRIT 45.2 % (37.0-47.0); LYMPH # 1.4 10*3/uL (1.3-4.4); LYMPH % 11.9 % (27.0-41.0); MEAN CELL VOLUME 91.9 fl (81.0-99.0); MEAN CORPUSCULAR HGB 29.3 pg (27.0-31.0); MEAN CORPUSCULAR HGB CONC 31.9 g/dl (33.0-37.0); MEAN PLATELET VOLUME 8.7 fl (9.6-12.3); MONO # 0.8 10*3/uL (0.1-1.0); MONO % 6.6 % (3.0-9.0); NEUT # 8.9 10*3/uL (2.3-7.9); NEUT % 79.2 % (47.0-73.0); PLATELET COUNT AUTOMATED 229 10*3/uL (130-400); RED BLOOD COUNT 4.92 10*6/uL (4.10-5.10); RED CELL DISTRI WIDTH 14.3 % (0-14.5); WHITE BLOOD COUNT 11.3 10*3/uL (4.8-10.8)
[2023-10-15 15:49] LABS: ALKALINE PHOSPHATASE 89 U/L (46-116); BUN 10 mg/dl (9-23); CHLORIDE 109 mmol/L (98-107); POTASSIUM 3.7 mmol/L (3.4-5.1); SGPT/ALT 15 U/L (5-49); TOTAL PROTEIN 6.7 gm/dL (6.0-8.0)
[2023-10-15] MEDS ORDERED: Albuterol Sulf/Ipratropium 3 ML VIAL NEB ONE (16:50)
[2023-10-15] MEDS ORDERED: MG-AL HYDROXIDE/SIMETICONE 30 ML UDC PO STA (17:28)
[2023-10-15] MEDS ORDERED: Lidocaine Hydrochloride 15 ML UDC PO STA (17:28)
[2023-10-15] MEDS ORDERED: Dicyclomine Hydrochloride 20 MG/10 ML OSYR PO STA (17:28)
[2023-10-15] MEDS ORDERED: Ketorolac Tromethamine 30 MG/ML VIAL IM ONE (17:55)
[2023-10-15] MEDS ORDERED: PREDNISONE50 MG PO (18:20)
[2023-10-15] MEDS ORDERED: ZITHROMAX250 MG PO (18:20)
== END 2023-10-15 18:30 | disposition home or self-care (01) ==
LOC: ED 15:03
PROVIDERS: Internal Medicine
DX: M94.0 Chondrocostal junction syndrome [Tietze] (principal); J06.9 Acute upper respiratory infection, unspecified; G43.909 Migraine, unspecified, not intractable, without status migrainosus; Z88.8 Allergy status to other drugs, medicaments and biological substances; Z90.89 Acquired absence of other organs; Z98.51 Tubal ligation status; Z98.890 Other specified postprocedural states; F17.200 Nicotine dependence, unspecified, uncomplicated